=== PATIENT | female | born 1990 | race Asian ===

== ENCOUNTER 2023-10-28 15:57 | Emergency (ER) | payer OTHER ==
[2023-10-28] MEDS: amLODIPine 10 MG Tab PO STA (16:17)
[2023-10-28] MEDS: Metoprolol Tartrate 50 MG Tab PO ONE (17:30)
[2023-10-28] MEDS: cloNIDine 0.1 MG Tab PO ONE (19:18)
== END 2023-10-28 19:46 | disposition home or self-care (01) ==
LOC: FB.ED 15:57
DX: I16.9 Hypertensive crisis, unspecified (principal)
CPT/HCPCS: 36415; 84484; 99283; 99284; A9270